=== PATIENT | male | born 1990 | race Two or more races ===

== ENCOUNTER 2023-09-21 06:02 | Emergency (ER) | payer MEDICAID ==
[~2023-09-21] VITALS: Ht 167.6 cm; Wt 70.5 kg
[2023-09-21 06:14] VITALS: TEMP 98.8
[2023-09-21] MEDS: LORazepam 2 MG/ML VIAL IM ONE (06:38)
[2023-09-21] MEDS: DiphenhydrAMINE HCL 50 MG/ML VIAL IM ONE (06:38)
[2023-09-21] MEDS: HALOPERIDOL LACTATE 5 MG/ML VIAL IM ONE (06:38)
[2023-09-21 07:51] LABS: COVID AG,FIA SOURCE NASAL SWAB
[2023-09-21 07:59] LABS: ALCOHOL, URINE DRUG SCREEN NEGATIVE (NEGATIVE); AMPHET/METH SCREEN,URINE NEGATIVE (NEGATIVE); BARBITURATE SCREEN, URINE NEGATIVE (NEGATIVE); BENZODIAZEPINES SCREEN,URINE NEGATIVE (NEGATIVE); CANNABINOID SCREEN,URINE POSITIVE (NEGATIVE); COCAINE SCREEN,URINE NEGATIVE (NEGATIVE); METHADONE SCREEN, URINE NEGATIVE (NEGATIVE); OPIATE SCREEN,URINE NEGATIVE (NEGATIVE); PHENCYCLIDINE SCREEN,URINE NEGATIVE (NEGATIVE)
[2023-09-21 08:13] LABS: SARS-COV2 (COVID) ANTIGEN,FIA Negative (Negative)
[2023-09-21 12:15] LABS: BASOPHILS % (AUTO) 0.2 % (0.0-2.0); EOSINOPHILS % (AUTO) 5.6 % (1.0-6.0); HEMATOCRIT 40.2 % (41-53); HEMOGLOBIN 13.5 g/dL (13.5-17.5); LYMPHOCYTES % (AUTO) 28.6 % (22.0-44.0); MEAN CORPUSCULAR HEMOGLOBIN 30.1 pg (26.0-34.0); MEAN CORPUSCULAR HGB CONC 33.5 G/dL (31.0-37.0); MEAN CORPUSCULAR VOLUME 90 fL (80-100); MONOCYTES # (AUTO) 0.7 K/uL (0.1-1.0); MONOCYTES % (AUTO) 10.4 % (2.0-9.0); NEUTROPHILS # (AUTO) 3.9 K/uL (1.8-7.7); NEUTROPHILS % (AUTO) 55.2 % (40.0-70.0); PLATELET COUNT (AUTO) 287 K/uL (150-450); RED BLOOD CELL COUNT(AUTO) 4.47 MIL/uL (4.50-5.90); RED CELL DISTRIBUTION WIDTH 13.6 % (11.5-14.5)
[2023-09-21 12:21] LABS: ANION GAP 9 mmol/L (8-16); CALCIUM, TOTAL 9.3 mg/dL (8.8-10.5); CARBON DIOXIDE 28 mmol/L (22-29); CHLORIDE 104 mmol/L (98-107); CREATININE 0.63 mg/dL (0.60-1.30); GLOMERULAR FILTR. RATE CALC > 60 mL/min (>60); GLUCOSE,RANDOM 87 mg/dL (70-110); POTASSIUM 3.9 mmol/L (3.5-5.1); SODIUM SERUM 141 mmol/L (136-145); UREA NITROGEN, BLOOD 17 mg/dL (7-18)
[2023-09-21 12:28] LABS: ALANINE AMINOTRANSFERASE 31 U/L (12-78); ALBUMIN 4.1 g/dL (3.4-5.0); ALKALINE PHOSPHATASE 60 U/L (46-116); ASPARTATE AMINOTRANSFERASE 50 U/L (15-37); BILIRUBIN,TOTAL 0.4 mg/dL (0.1-1.0); TOTAL PROTEIN, SERUM 7.7 g/dL (6.4-8.2)
[2023-09-21 12:40] LABS: ALCOHOL, BLOOD (SERUM) < 3 mg/dL (0-10)
[2023-09-21 16:10] VITALS: BP 142/87; PULSE 83; RESP 18
== END 2023-09-21 16:18 | disposition short-term general hospital (02) ==
LOC: EMS 06:04
DX: F25.9 Schizoaffective disorder, unspecified (principal); Z20.822 Contact with and (suspected) exposure to COVID-19
CPT/HCPCS: 99291; 87426; 80053; 85025; 36415; 96372; 80307; J1200; J1630; J2060; G0480

== ENCOUNTER 2023-10-15 21:13 | Emergency (ER) | payer MEDICAID ==
[~2023-10-15] VITALS: Ht 171.4 cm; Wt 70.5 kg
[2023-10-15 21:25] VITALS: BP 153/79; PULSE 98; RESP 18; TEMP 98.9
[2023-10-15 22:15] LABS: BASOPHILS % (AUTO) 0.2 % (0.0-2.0); EOSINOPHILS % (AUTO) 5.9 % (1.0-6.0); HEMATOCRIT 37.5 % (41-53); HEMOGLOBIN 12.6 g/dL (13.5-17.5); LYMPHOCYTES # (AUTO) 2.7 K/uL (1.0-4.8); LYMPHOCYTES % (AUTO) 34.1 % (22.0-44.0); MEAN CORPUSCULAR HEMOGLOBIN 30.2 pg (26.0-34.0); MEAN CORPUSCULAR HGB CONC 33.7 G/dL (31.0-37.0); MEAN CORPUSCULAR VOLUME 90 fL (80-100); MONOCYTES # (AUTO) 0.6 K/uL (0.1-1.0); MONOCYTES % (AUTO) 7.9 % (2.0-9.0); NEUTROPHILS # (AUTO) 4.1 K/uL (1.8-7.7); NEUTROPHILS % (AUTO) 51.9 % (40.0-70.0); PLATELET COUNT (AUTO) 268 K/uL (150-450); RED BLOOD CELL COUNT(AUTO) 4.18 MIL/uL (4.50-5.90); RED CELL DISTRIBUTION WIDTH 13.4 % (11.5-14.5); WHITE BLOOD COUNT (AUTO) 7.8 K/uL (4.5-11.0)
[2023-10-15 22:20] LABS: ANION GAP 12 mmol/L (8-16); CALCIUM, TOTAL 9.3 mg/dL (8.8-10.5); CARBON DIOXIDE 29 mmol/L (22-29); CHLORIDE 102 mmol/L (98-107); CREATININE 0.68 mg/dL (0.60-1.30); GLOMERULAR FILTR. RATE CALC > 60 mL/min (>60); GLUCOSE,RANDOM 107 mg/dL (70-110); POTASSIUM 3.6 mmol/L (3.5-5.1); SODIUM SERUM 143 mmol/L (136-145); UREA NITROGEN, BLOOD 22 mg/dL (7-18)
[2023-10-15 22:26] LABS: ALANINE AMINOTRANSFERASE 118 U/L (12-78); ALBUMIN 3.9 g/dL (3.4-5.0); ALKALINE PHOSPHATASE 60 U/L (46-116); ASPARTATE AMINOTRANSFERASE 572 U/L (15-37); BILIRUBIN,TOTAL 0.2 mg/dL (0.1-1.0); TOTAL PROTEIN, SERUM 7.1 g/dL (6.4-8.2)
[2023-10-15 22:33] LABS: ALCOHOL, BLOOD (SERUM) < 3 mg/dL (0-10)
[2023-10-16] MEDS ORDERED: OLANZapine 5 MG TABLET PO ONE (03:30)
[2023-10-16 05:59] LABS: PH,URINE DRUG SCREEN 5.5 (5.0-8.0)
[2023-10-16 06:14] LABS: ALCOHOL, URINE DRUG SCREEN NEGATIVE (NEGATIVE); AMPHET/METH SCREEN,URINE NEGATIVE (NEGATIVE); BARBITURATE SCREEN, URINE NEGATIVE (NEGATIVE); CANNABINOID SCREEN,URINE POSITIVE (NEGATIVE); COCAINE SCREEN,URINE NEGATIVE (NEGATIVE); METHADONE SCREEN, URINE NEGATIVE (NEGATIVE); OPIATE SCREEN,URINE NEGATIVE (NEGATIVE); PHENCYCLIDINE SCREEN,URINE NEGATIVE (NEGATIVE)
[2023-10-16 06:26] LABS: BENZODIAZEPINES SCREEN,URINE NEGATIVE (NEGATIVE)
[2023-10-16 06:28] LABS: COVID AG,FIA SOURCE NASAL SWAB
[2023-10-16] MEDS ORDERED: DIVALPROEX SODIUM 500 MG ER TABLET PO ONE (06:30)
[2023-10-16 07:27] LABS: SARS-COV2 (COVID) ANTIGEN,FIA Positive (Negative)
[2023-10-17 10:07] LABS: HEPATITIS A ANTIBODY IGM Negative (Negative); HEPATITIS B CORE IGM Negative (Negative); HEPATITIS C AB (EIA) Non Reactive (Non Reactive)
== END 2023-10-16 10:07 | disposition admitted as inpatient to this hospital (09) ==
LOC: EMS 21:15
DX: U07.1 COVID-19 (principal); F20.9 Schizophrenia, unspecified; R79.89 Other specified abnormal findings of blood chemistry
CPT/HCPCS: 99285; 87426; 80053; 85025; 36415; 80074; 80307; 76705; G0480

== ENCOUNTER 2023-11-02 07:38 | Emergency (ER) | payer MEDICAID ==
[~2023-11-02] VITALS: Ht 170.2 cm; Wt 68.2 kg
[2023-11-02 08:21] VITALS: TEMP 98.4
[2023-11-02 09:22] LABS: COVID AG,FIA SOURCE NASAL SWAB
[2023-11-02 09:57] LABS: SARS-COV2 (COVID) ANTIGEN,FIA Negative (Negative)
[2023-11-02 11:09] VITALS: BP 160/63; PULSE 97; RESP 18
== END 2023-11-02 11:15 | disposition home or self-care (01) ==
LOC: EMS 07:38
DX: F69 Unspecified disorder of adult personality and behavior (principal); Z20.822 Contact with and (suspected) exposure to COVID-19
CPT/HCPCS: 99285; Z7502